=== PATIENT | male | born 1995 | race Caucasian/White ===

== ENCOUNTER 2023-11-22 20:24 | Emergency (ER) | payer SELFPAY ==
--- NOTE | 2023-11-22 20:15 | DI.CT_ITS ---
Exam(s) CT LUMBAR SPINE WO EXAM: CT LUMBAR SPINE WO CLINICAL HISTORY: low back pain; injury while lifting heavy weight. TECHNIQUE: Imaging Protocol: Axial computed tomography images with coronal and sagittal reformatted images were created and reviewed COMPARISON: No exams were available for comparison FINDINGS: Bones: The last intervertebral disc space is designated the L5/S1 level for the numbering purpose of this examination. The vertebral body heights are well maintained. Alignment is satisfactory. No fracture is seen. T12-L1: No disc herniations or bulges are present. L1-2: No disc herniations or bulges are present. L2-3: No disc herniations or bulges are present. L3-4: Minimal disc bulging. L4-5: Mild disc bulging. L5-S1: Mild central and slightly left-sided disc bulging which may contact the left S1 nerve root. Minimal central canal stenosis. The visualized SI joints and sacrum are will maintained. Soft Tissues: The paraspinal soft tissues are unremarkable. IMPRESSION: Disc bulging slightly eccentric toward the left at L5-S1 may contact the left S1 nerve root. Slight central canal stenosis. No neural foraminal narrowing at any level. RADIATION DOSE DELIVERED: Total DLP DATA REPOSITORY: All CT scans at this facility are submitted to the National Radiology Data Registry (NRDR) Dose Index Registry (DIR) with the [employer] (ACR). RADIATION OPTIMIZATION: All CT scans at this facility use at least one of these dose optimization te chniques: automated exposure control; mA and/or kV adjustment per patient size (includes targeted exa ms where dose is matched to clinical indication); or iterative reconstruction.
[2023-11-22 20:25] VITALS: BP 165/95; PULSE 89; RESP 16; TEMP 36.8; O2SAT 100
--- NOTE | 2023-11-22 20:28 | W.ED.GENAD ---
Discharge Plan Disposition Patient Disposition: Home Condition: Stable Discharge Details Clinical Impression: Lumbosacral disc herniation ED Provider: Ralph Payan Home Meds and New Rx's Prescriptions: No Action No Known Home Meds Discharge Instructions Instructions: Cyclobenzaprine (By mouth), Lumbar Disc Herniation (ED) Additional Instructions: You were seen in the emergency department for your acute back injury while lifting weights on a rowing machine just prior to arrival, the CT scan shows that you do have a lumbosacral disc protruding and pressing slightly on the sac that surrounds the lumbar spinal nerves as they continue down the spinal canal. I would highly advise that you follow-up with an orthopedic spine doctor with these findings, there are several in the area but we do not have them here at [facility], you may pursue [facility] versus private practices in the area that have orthospine capability. You need to be very careful with your back I would not do anything that could further injure it at this time. We discussed at length the strict return criteria to a facility with neurosurgery capability if you experience symptoms of cauda equina including urinary retention, fecal incontinence, numbness in the groin. Obtain [id number] Lidoderm patches and apply it to the your lower back each day for 12 hours. Please use therapeutic dosing of Tylenol (acetamenophen) & Advil (ibuprofen) in an alternating fashion as follows: Take 1000mg of Tylenol every 6 hours without missing doses- that is 4 times per day. [place] in between the Tylenol dosings, take 400-600mg of Advil also on a 6 hour schedule, that is also 4 times per day. The daily maximum dosing of Tylenol is 4000mg, and the daily maximum dosing of Advil is 2400mg. This is safe to do for weeks. Please note that some common cold medications & prescription pain medications may contain acetamenophen and you need to read OTC drug labels and factor that in to maximum daily dosings. I gave you a long-acting steroid here today, if you are continuing to experience significant pain you may need further steroid taper, I also sent you home with some muscle relaxers called cyclobenzaprine, use these 3 times a day but not before driving or performing concentrate of activities. Perform gentle massage to the area, very gentle stretching can be permitted. Referrals: [facility] [Outside] (Ortho-Spine Offices) HPI General Date/Time Provider Initiated Documentation: 11/22/23 20:26. HPI Narrative: 27 year-old male presents to ED today by EMS with a chief complaint of lumbar back pain with leg spasm- was working out at the gym, performing rowing machine at #[id number]., and felt a pop in his back with excruciating pain with onset just prior to arrival. Quality described as pain from spasm, feels better with pressure, no radiation to groin numbness, numbness/tingling in either leg, fecal incontinence, upper back pain, abdominal pain. Severity is described as 8-9/10. Palliating factors include nothing specific attempted yet. Provoking factors include nothing specific. Patient not anticoagulated. Related Data Home Medications Medication Instructions Recorded Confirmed Unknown [No Known Home Meds] 11/22/23 11/22/23 Allergies Allergy/AdvReac Type Severity Reaction Status Date / Time No Known Allergies Allergy Unverified 11/22/23 20:24 Review of Systems All systems reviewed & are unremarkable except as noted in HPI and below Exam Narrative Exam Narrative: GENERAL APPEARANCE: Well-nourished, non-toxic, awake and alert, atraumatic, no acute distress. SKIN: Warm, pink, dry, intact, without rashes/lesions/ulcerations. HEAD: Normocephalic, atraumatic, normal hair distribution for gender/age. EYES: Pupils PERRLA, EOMs intact without nystagmus, normal conjunctiva, no exudates on lids/lashes. ENT: Nares patent, no circumoral cyanosis, no facial swelling NECK: Supple, trachea midline, painless cervical ROM. LUNGS/CHEST: Non-labored respirations, normal A/P diameter, symmetrical expansion, no chest wall deformity HEART (CV/PV): Regular rate, dorsalis pedis pulse intact bilaterally, no peripheral edema, no JVD. ABDOMEN: Soft, non-distended, no guarding. MSK: Normal ROM, no swelling/deformity to bilateral UEs or LEs, moving all extremities without weakness, no cyanosis, spine midline without tenderness, normal curvature. lower lumbar focal pain- feels better with palpation, no vertebral midline tenderness/crepitus/step-offs, sensation intact bilateral LEs, ROM intact in plantar/dorsiflexion with 5/5 strength, has active visible spasm of R lumbar paraspinal muscles NEURO: Mental Status AAOx4 - alert to person, place, time, events No facial droop, no forehead involvement. Motor: No focal weakness - strength 5/5 in bilateral UEs and LEs, proximal and distal, symmetric. Sensory: sensation intact to light touch globally. Gait normal: patient ambulated without ataxia into ED room. PSYCH: euthymic, cooperative, pleasant, appropriate speech Medical Decision Making This dictation utilizes [id number] dictation software and may contain unedited grammatical errors. 27 y/o M presents to ED today with a chief complaint of acute back injury while working out, was performing a rowing machine at high weight, felt a 'pop' in his lumbar back and immediately went to the ground in spasm. Patient denies groin numbness, or any numbness to his legs, states it feels better when someone pressures near the area of pain. Patients' medical history: negative, otherwise healthy. Family and social history: eats well, exercises, no sick contacts, no drugs/ETOH use. Pertinent exam findings / vital signs include R lumbar paraspinal tenderness with active muscle spasm, no saddle anesthesia, plantar/dorsiflexion 5/5 in bilateral LEs, no vertebral crepitus/step-offs. Differential / pathologies of concern include Lumbar vertebral minor fracture vs disc herniation, unlikely cauda equina, Acute Lumbar Spasm. Diagnostic studies of: -CT Lumbar wo Contrast. -CT shows some MILD thecal sac compression at L5-S1 from disc herniation- recommend OrthoSpine f/u and MRI outpatient Interventions of: -PO 1g APAP, 10mg PO ketorlac, 10mg PO dexamethasone, 1mg PO ativan. Significant improvement. ED Course/Assessment/Plan: 27-year-old healthy male presents with acute back injury and significant spasm of his right lower extremity with pain focal in the lower lumbar area. CT of the lumbar spine was performed shows mild thecal sac compression due to L5-S1 disc herniation. I treated him with analgesics and muscle relaxers with significant relief. Counseled on following up with physical therapy as well as orthospine, he was provided a disc of his images to bring with him and I do recommend an outpatient MRI, I discussed at length with him cauda equina and strict return criteria preferably to a facility with neurosurgery capability if he experience the symptoms. I did clinical mental health counselor him on therapeutic dosing of Tylenol and ibuprofen, provided cyclobenzaprine to go. Findings not consistent with cauda equina, paralysis of LEs, vertebral fracture. Disposition of Lumbosacral Disc Herniation. Patient verbalized understanding of the plan and return to ED criteria and engaged in shared decision making. Imaging Data Radiologic Study: Attestation: I personally reviewed and interpreted this imaging study as follows: Imaging: CT Scan Radiologist's impression: Exam: CT Lumbar Spine Without Contrast Exam date and time: 11/22/2023 8:44 PM Age: 27 years old Clinical indication: Injury or trauma; Other: Injured while lifting TECHNIQUE: Imaging protocol: Computed tomography of the lumbar spine without contrast. COMPARISON: No relevant prior studies available. FINDINGS: Bones/joints: There is mild retrolisthesis of L5 upon S1 and there is gross preservation of vertebral body height throughout the lumbar spine with no fractures or other significant subluxations detected. Posterior elements appear intact throughout lumbar levels. L1-L2: No disc bulge/protrusion, canal stenosis or foraminal narrowing detected. L2-L3: No disc bulge/protrusion, canal stenosis or foraminal narrowing detected. L3-L4: Minimal broad-based posterior disc bulging without focal protrusion. No canal stenosis or foraminal narrowing detected. L4-L5: There is mild broad-based posterior disc bulging without focal protrusion. No canal stenosis or foraminal narrowing detected. L5-S1: Posterior central disc protrusion indents the ventral thecal sac and produces mild central canal stenosis (AP canal dimension approximately 9 mm) and contacts the traversing left S1 root (see image 78, series 3). L5 neural foramina appear adequate bilaterally. Soft tissues: Unremarkable. IMPRESSION: 1. Posterior central disc protrusion at L5-S1 indents the ventral thecal sac and produces mild central canal stenosis (AP canal dimension approximately 9 mm) and contacts the traversing left S1 root as above. L5 neural foramina appear adequate bilaterally. 2. Mild to minimal broad-based posterior disc bulges without protrusion at L3-L4 and L4-L5 do not result in central canal narrowing or nerve root impingement and intervertebral discs are intact throughout the remainder of the lumbar spine. No acute fractures are detected at lumbar levels. Dictated and Authenticated by: Billy Roth MD. Ordering:MIRTA Rosas MD Quality:SDOH Health Related Social Needs: No Data to Display PFSH All Active Problems (Updated 11/22/23 @ 21:29 by PELON Bowman) Lumbosacral disc herniation (Acute) Social History Smoking/Tobacco Use Status: Never Smoking risk assessment performed?: Yes Alcohol Intake: current Alcohol Intake frequency: holidays/special occasions only Alcohol type: beer Drug use: Never Substance use type: does not use Housing: apartment Do you feel safe at home: Yes Do you feel safe in your relationship?: Yes
[2023-11-22] MEDS: Lidocaine 5% Patch 1 PATCH TP (20:37)
[2023-11-22] MEDS: Ketorolac 10 MG TAB PO (20:39)
[2023-11-22] MEDS: LORazepam 1 MG TAB PO (20:39)
[2023-11-22] MEDS: Dexamethasone 4 MG TAB 10 MG PO (20:40)
[2023-11-22] MEDS: Acetaminophen 500 MG TAB 1000 MG PO (20:40)
--- NOTE | 2023-11-22 21:27 | DI.VRAD_ITS ---
PROCEDURE INFORMATION: Exam: CT Lumbar Spine Without Contrast Exam date and time: 11/22/2023 8:44 PM Age: 27 years old Clinical indication: Injury or trauma; Other: Injured while lifting TECHNIQUE: Imaging protocol: Computed tomography of the lumbar spine without contrast. COMPARISON: No relevant prior studies available. FINDINGS: Bones/joints: There is mild retrolisthesis of L5 upon S1 and there is gross preservation of vertebral body height throughout the lumbar spine with no fractures or other significant subluxations detected. Posterior elements appear intact throughout lumbar levels. L1-L2: No disc bulge/protrusion, canal stenosis or foraminal narrowing detected. L2-L3: No disc bulge/protrusion, canal stenosis or foraminal narrowing detected. L3-L4: Minimal broad-based posterior disc bulging without focal protrusion. No canal stenosis or foraminal narrowing detected. L4-L5: There is mild broad-based posterior disc bulging without focal protrusion. No canal stenosis or foraminal narrowing detected. L5-S1: Posterior central disc protrusion indents the ventral thecal sac and produces mild central canal stenosis (AP canal dimension approximately 9 mm) and contacts the traversing left S1 root (see image 78, series 3). L5 neural foramina appear adequate bilaterally. Soft tissues: Unremarkable. IMPRESSION: 1. Posterior central disc protrusion at L5-S1 indents the ventral thecal sac and produces mild central canal stenosis (AP canal dimension approximately 9 mm) and contacts the traversing left S1 root as above. L5 neural foramina appear adequate bilaterally. 2. Mild to minimal broad-based posterior disc bulges without protrusion at L3-L4 and L4-L5 do not result in central canal narrowing or nerve root impingement and intervertebral discs are intact throughout the remainder of the lumbar spine. No acute fractures are detected at lumbar levels. Dictated and Authenticated by: Billy Roth MD. Ordering:MIRTA Rosas MD
[2023-11-22 21:33] VITALS: BP 140/97; PULSE 84; RESP 16; O2SAT 100
[2023-11-22] MEDS: Cyclobenzaprine 10 MG TAB, 3 TABS/BTL PO (21:47)
== END 2023-11-23 21:33 | disposition home or self-care (01) ==
LOC: ER 11-24 18:18
PROVIDERS: Emergency Provider Physician Assistant
DX: M51.27 Other intervertebral disc displacement, lumbosacral region (principal)
CPT/HCPCS: 99284; 72131; J8540